=== PATIENT | female | born 1970 | race Caucasian/White ===

== ENCOUNTER 2025-03-07 13:55 | Outpatient (CLI) | payer BC, SELFPAY ==
--- OUTSIDE RECORDS SUMMARY | 2025-03-07 13:58 | XMS_ITS | Clinical Summary ---
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 09/26/[facility]22 A ctive Farxiga 10 MG tablet 10/27/2022 Active esomeprazole (NexIUM) [address] capsule 02/25/2022 Active Linzess 72 MCG capsule capsule 10/24/2022 Act moira lisinopril-hydroCHLO ROthiazide 10-12.5 MG tablet 02/03/2022 Active metoclopramide (Reglan) 5 MG tablet 12/01/2021 Active ondansetron ODT (Zofran-ODT) 4 MG disintegrating tablet 12/02/2021 Active pioglitazone (Actos) 30 MG tablet 10/26/2022 Active escitalopram (Lexapro) 10 MG tablet 12/16/2022 Active Social History Tobacco Use Types Packs/Day Years Used Date Smoking Tobacco: Never Smokeless Tobacco: Never Alcohol Use Standard Drinks/Week Comments Defer 0 (1 standard drink = 0.6 oz pur e alcohol) PHQ-2 Answer Date Recorded Patient Health Questionnaire-2 Score 0 12/17/2022 PHQ-2A Answer Date Recorded Patient Health Questionnaire-2 Score 0 12/17/2022 Comments Unknown Sex and Gender Information Value Date Recorded Sex Assigned at Not on file Legal Sex Female 7:55 PM EDT Gender Identity Not on file Sexual Orientation Not on file Last Filed Vital Signs Vital Sign Reading Time Taken Comments Blood Pressure 121/73 12/17/2022 11:43 AM EDT Pulse 84 12/17/2022 11:43 AM EDT Temperature 36.6 C (97.8 F) 12/17/2022 11:43 AM EDT Respiratory Rate 17 11/02/2022 12:16 PM EDT Oxygen Saturation 98% 12/17/2022 11:43 AM EDT Inhaled Oxygen Concentration - - Weight 81.6 kg (180 lb) 12/17/2022 11:43 AM EDT Height 165.1 cm (5' 5 ) 12/17/2022 11:43 AM EDT Body Mass Index 29.95 12/17/2022 11:43 AM EDT Plan of Treatment Health Maintenance Due Date Last Done Comments [facility]-HIV Screening 1970 [facility]-Hepatitis C Screening 1970 [facility]-Infant/Child/Adol SDOH Screenings 1970 [facility]- SDOH Screenings 1988 [facility]-Adult SDOH Screenings 1988 [facility]-DTaP,Tdap,and Td Vaccine s (1 - Tdap) 1989 [facility]-Hepatitis B Vaccines (1 of 3 - 19+ 3-dose series) 1989 [facility]-Pap Smear 08/13/1993 08/13/1990, 11/30/1989 [facility]-Cervical Cancer Screening 2000 [facility]-HPV/Cotest 2000 08/13/1990, 11/30/1989 CT Colonography 2015 Colonoscopy 2015 FIT-DNA 2015 FIT 2015 FOBT 2015 Sigmoidoscopy 2015 [facility]-Colorectal Cancer Screening 2015 [facility]-Breast Cancer Screening 2020 [facility]-Pneumococcal Vaccine: 50 + Years (1 of 1 - PCV) 2020 [facility]-Zoster Vaccines (1 of 2) 2020 [facility]-Depression Screening 12/18/2023 12/17/2022 [id number] Vaccine ( season) 2024 12/20/2020 [facility]-Influenza Vaccine (#1) 2024 [facility]-Obesity Intervention Completed 023, 11/19/2022 HPV Vaccines Aged Out No longer eligi ble based on patient's age to complete this topic [facility]-HIB Vaccines Aged Out No longer e ligible based on patient's age to complete this topic [facility]-Hepatitis A Vaccines Aged Out No longer eligible based on patient's age to complete this topic [facility]-IPV Vaccines Aged Out No longer e ligible based on patient's age to complete this topic [facility]-Rotavirus Vaccines Aged Out No lo nger eligible based on patient's age to complete this topic Procedures Procedure Name Priority Date/Time Associated Diagnosis Comments CYTO DATA CONVERSION Routine 08/13/1990 12:00 AM EDT from Last 3 Months or Most Recently Relevant to Health Maintenance Results * Cytology (08/13/1990 12:00 AM EDT) 08/13/1990 08/16/1990 Narrative SUNQUEST - 08/18/1990 12:00 AM EDT [facility] MR #: [id number] [facility] [place] [place] [id number] 1970 (Age: 20) FW Collect Date: 08/13/1990 00:00 Receipt Date: 08/16/1990 00:00 Page 1 DEPARTMENT OF PATHOLOGY AND LABORATORY MEDICINE CYTOPATHOLOGY REPORT Email: [email or web address] * Converted Case * This report may not match the original report format ATTENDING MD/Practitioner: Johnie Hernandez MD Service: OB Location: Reported: 08/18/1990 00:00 Collected: 08/13/1990 00:00 INTERPRETATION CERVICAL SCRAPE/ENDOCERVICAL SWAB: SATISFACTORY FOR INTERPRETATION. WITHIN NORMAL LIMITS. Electronically Signed Out KINGA Garcia (ASCP) Davey Jacobs MD Cervical cytology is a screening test primarily for squamous cancers and precursors and has associated false negative and positive results. New technologies such as liquid based sampling may decrease but will not eliminate all false negative results. Regular screening and follow-up of unexplained clinical signs and symptoms are recommended to minimize false negative results. Please see the ASCCP website (www.asccp.org) for followup recommendations. If HPV testing was requested, correlation with the results is suggested (please call Microbiology at [phone] for results). CLINICAL INFORMATION: Menstrual History: {Not Provided} Date of Last Menstrual Period: {Not Provided} SPECIMEN DESCRIPTION: A: CERVICAL/VAGINAL SMEAR, PAP ICD: F: {Not Entered} SNOMED CODES: 1; [id number] In cases where a pathologist has signed out the report, the service has been rendered in part by a resident. The signing pathologist has performed and is responsible for the reported pathologic evaluation. us [facility] Provider LAB PATHOLOGY ORDERABLES Fin al Result SUNQUEST from Last 3 Months or Most Recently Relevant to Health Maintenance Insurance [employer] Care Teams Handhole Machine Operator Relationship Specialty Start Date End Date [place] [address] [place] [id number] PCP - General 11/02/22
[2025-03-07 14:48] LABS: Hematocrit 37.2 % (37.0-47.0); Hemoglobin 12.6 g/dL (12.2-16.2); Immature Granulocytes % 0 %; Mean Corpuscular HGB Conc 33.9 g/dL (31.8-35.4); Mean Corpuscular Hemoglobin 30.2 pg (27.0-31.2); Mean Corpuscular Volume 89.2 fl (81-99); Nucleated Red Blood Cells % 0 %; Platelet Count 175 K/mm3 (142-424); Red Blood Count 4.17 M/mm3 (4.20-5.40); Red Cell Distribution Width-SD 38.7 fL; White Blood Count 3.1 K/mm3 (4.8-10.8)
[2025-03-07 14:58] LABS: Alanine Aminotransferase 16 U/L (12-78); Albumin Level 4.6 g/dl (3.5-5.0); Albumin/Globulin Ratio 1.6 (1.1-1.8); Alkaline Phosphatase 64 U/L (38-126); Anion Gap 7.7 mEq/L (5-15); Aspartate Amino Transferase 22 U/L (14-36); Bilirubin,Total 0.7 mg/dl (0.2-1.3); Blood Urea Nitrogen 14 mg/dl (7-17); Calcium 9.5 mg/dl (8.4-10.2); Carbon Dioxide 29 mmol/L (22.0-30.0); Chloride 102 mmol/L (98-107); Creatinine,Serum 0.70 mg/dl (0.52-1.04); Estimated Glomerular Filt Rate 87 ml/min (>60); GFR (African American) 106 ML/MIN (>60); Globulin 2.8 g/dL (1.3-3.2); Glucose 79 mg/dl (74-100); Potassium 3.7 mmoL/L (3.5-5.1); Sodium 135 mmol/L (136-145); Total Protein,Serum 7.4 g/dl (6.3-8.2)
== END 2025-03-07 23:59 | disposition home or self-care (01) ==
LOC: LAB 13:55
PROVIDERS: PCP Family Medicine; Visit Provider Internal Medicine Medical Oncology
DX: R79.9 Abnormal finding of blood chemistry, unspecified (principal)
CPT/HCPCS: 36415; 80053; 85025

== ENCOUNTER 2025-03-17 12:59 | Outpatient (CLI) | payer BC, SELFPAY | END 2025-03-17 23:59 | disposition home or self-care (01) | LOC: LAB 13:00 | PROVIDERS: PCP Family Medicine; Visit Provider Internal Medicine Medical Oncology | DX: D72.819 Decreased white blood cell count, unspecified (principal) | CPT/HCPCS: 36415; 80074; 87389 ==